=== PATIENT | female | born 1985 | race Caucasian/White ===

== ENCOUNTER 2017-12-27 14:54 | Emergency (ER) | payer BC, MEDICAID ==
[~2017-12-27] VITALS: Ht 167.6 cm; Wt 98.1 kg
[2017-12-27 14:57] VITALS: BP 136/86
[2017-12-27] MEDS ORDERED: TRAM50TA2 PO (15:35)
[2017-12-27] MEDS ORDERED: CHLO473M3 PO (15:35)
== END 2017-12-27 15:45 | disposition home or self-care (01) ==
LOC: ER 14:55
DX: K04.7 Periapical abscess without sinus (principal); Z88.2 Allergy status to sulfonamides; Z88.1 Allergy status to other antibiotic agents; Z79.899 Other long term (current) drug therapy
CPT/HCPCS: 99283